=== PATIENT | male | born 1985 | race Caucasian/White ===

== ENCOUNTER 2017-06-19 12:15 | Emergency (ER) | payer OTHER ==
[~2017-06-19] VITALS: Ht 180.3 cm; Wt 75.6 kg
[2017-06-19] MEDS ORDERED: FLEXERIL10 MG PO (14:34)
[2017-06-19] MEDS ORDERED: MOTRIN800 MG PO (14:34)
[2017-06-19] MEDS ORDERED: LIDODERM 5% P1 PATCH TD (14:34)
[2017-06-19] MEDS ORDERED: PREDNISONE20 MG PO (14:34)
[2017-06-19 15:07] VITALS: BP 128/90
== END 2017-06-19 15:10 | disposition home or self-care (01) ==
LOC: EME 12:15
DX: M54.41 Lumbago with sciatica, right side (principal); F17.210 Nicotine dependence, cigarettes, uncomplicated; Z88.0 Allergy status to penicillin
CPT/HCPCS: 72100; 81003; 99281; 99283; J1885; J7512